=== PATIENT | male | born 1945 | race Caucasian/White ===

== ENCOUNTER 2020-05-18 19:23 | Inpatient (IN) ==
[2020-05-18] MEDS: *HR* OxyCODONE/APAP 5/325 TABLET PO PRN (22:20)
[2020-05-19] MEDS ORDERED: D5% in Water 1,000 ML IVC PRN (01:22)
[2020-05-19] MEDS ORDERED: *HR* Dextrose 50 % in Water (Vial) 50 ML VIAL IVP PRN (01:22)
[2020-05-19] MEDS ORDERED: Dextrose Gel 15 GM/37.5 ML TUBE PO PRN ×2 (01:22)
[2020-05-19] MEDS: *HR* OxyCODONE/APAP 5/325 TABLET PO PRN ×4 (02:40→21:17)
[2020-05-19] MEDS: Ipratropium/Albuterol Neb 3 ML IH SCH ×3 (06:29→17:36)
[2020-05-19] MEDS: allopurinoL 300 MG TABLET PO SCH (08:43)
[2020-05-19] MEDS: Finasteride 5 MG TABLET PO SCH (08:43)
[2020-05-19] MEDS: Latanoprost 2.5 ML BOTTLE BOTH EYES SCH ×2 (08:43→08:51)
[2020-05-19] MEDS: Multivit/Ca/Min/Fe/FA 1 TAB TABLET PO SCH (08:43)
[2020-05-19] MEDS: Cyanocobalamin (B-12) 1,000 MCG TABLET PO SCH (08:43)
[2020-05-19] MEDS: Aspirin Enteric Coated 81 MG Tablet PO SCH (08:43)
[2020-05-19 08:54] LABS: Basophils # 0.1 K/mcL (0.0-0.2); Basophils % 0.8 %; Eosinophils # 0.8 K/mcL (0.0-0.6); Eosinophils % 9.9 %; Hematocrit 30.9 % (37.5-50.1); Immature Granulocytes % 0.2 % (0-4); Lymphocytes # 1.6 K/mcL (0.6-4.6); Lymphocytes % 19.8 %; Mean Corpuscular HGB Conc 32.4 g/dL (31.6-35.5); Mean Corpuscular Hemoglobin 28.6 pg (28.0-33.3); Mean Corpuscular Volume 88.3 fL (83.0-100.0); Mean Platelet Volume 11.1 fL (9.4-12.4); Monocytes # 0.6 K/mcL (0.0-1.3); Monocytes % 7.3 %; Neutrophils # 5.1 K/mcL (1.6-8.9); Platelet Count 397 K/mcL (140-400); Red Cell Distribution Width 14.3 % (11.5-14.5); White Blood Count 8.3 K/mcL (4.3-11.1)
[2020-05-19] MEDS ORDERED: TADALAFIL 6 MG PO SCH (09:00)
[2020-05-19 09:18] LABS: BUN/Creatinine Ratio 19 (6-26); Blood Urea Nitrogen 22 mg/dL (8-23); Calcium 8.9 mg/dL (8.6-10.3); Carbon Dioxide 28 mEq/L (23-29); Chloride 99 mEq/L (98-107); Glucose 117 mg/dL (70-105); Osmolality,Calculated 282 (280-300); Potassium 4.6 mEq/L (3.5-5.1); Sodium 134 mEq/L (136-145); eGFR For African Americans > 60 (> 60); eGFR For Non-African Americans > 60 (> 60)
[2020-05-19] MEDS: Budesonide Neb 0.5 MG/2 ML IH SCH ×2 (10:41→21:12)
[2020-05-19] MEDS: Insulin LISPRO 300 UNITS/3 ML VIAL SUBQ SCH (16:56)
[2020-05-19] MEDS: Sennosides/Docusate Sodium TABLET PO SCH (21:17)
[2020-05-20] MEDS: Ipratropium/Albuterol Neb 3 ML IH SCH ×3 (00:23→18:01)
[2020-05-20] MEDS: *HR* OxyCODONE/APAP 5/325 TABLET PO PRN ×3 (05:27→22:19)
[2020-05-20] MEDS ORDERED: CREON PO PRN (07:52)
[2020-05-20] MEDS ORDERED: [UNRECOGNIZED DRUG - OTHER] PO SCH (08:00)
[2020-05-20] MEDS: Multivit/Ca/Min/Fe/FA 1 TAB TABLET PO SCH (08:22)
[2020-05-20] MEDS: Insulin LISPRO 300 UNITS/3 ML VIAL SUBQ SCH ×3 (08:22→16:21)
[2020-05-20] MEDS: Aspirin Enteric Coated 81 MG Tablet PO SCH (08:22)
[2020-05-20] MEDS: Cyanocobalamin (B-12) 1,000 MCG TABLET PO SCH (08:23)
[2020-05-20] MEDS: allopurinoL 300 MG TABLET PO SCH (08:23)
[2020-05-20] MEDS: Finasteride 5 MG TABLET PO SCH (08:23)
[2020-05-20] MEDS: Latanoprost 2.5 ML BOTTLE BOTH EYES SCH (08:23)
[2020-05-20] MEDS: Sennosides/Docusate Sodium TABLET PO SCH ×2 (08:26→21:08)
[2020-05-20] MEDS: Budesonide Neb 0.5 MG/2 ML IH SCH ×2 (09:33→22:34)
[2020-05-21] MEDS: Ipratropium/Albuterol Neb 3 ML IH SCH ×3 (02:48→17:44)
[2020-05-21] MEDS: *HR* OxyCODONE/APAP 5/325 TABLET PO PRN ×3 (03:53→17:08)
[2020-05-21] MEDS: Insulin LISPRO 300 UNITS/3 ML VIAL SUBQ SCH ×3 (09:04→16:26)
[2020-05-21] MEDS: Sennosides/Docusate Sodium TABLET PO SCH ×2 (09:10→19:42)
[2020-05-21] MEDS: Multivit/Ca/Min/Fe/FA 1 TAB TABLET PO SCH (09:10)
[2020-05-21] MEDS: Finasteride 5 MG TABLET PO SCH (09:10)
[2020-05-21] MEDS: Latanoprost 2.5 ML BOTTLE BOTH EYES SCH (09:10)
[2020-05-21] MEDS: Aspirin Enteric Coated 81 MG Tablet PO SCH (09:10)
[2020-05-21] MEDS: allopurinoL 300 MG TABLET PO SCH (09:10)
[2020-05-21] MEDS: Cyanocobalamin (B-12) 1,000 MCG TABLET PO SCH (09:10)
[2020-05-21] MEDS: Budesonide Neb 0.5 MG/2 ML IH SCH ×2 (10:21→21:53)
[2020-05-22] MEDS: Ipratropium/Albuterol Neb 3 ML IH SCH ×3 (01:58→17:13)
[2020-05-22] MEDS: Insulin LISPRO 300 UNITS/3 ML VIAL SUBQ SCH ×3 (09:18→16:21)
[2020-05-22] MEDS: Multivit/Ca/Min/Fe/FA 1 TAB TABLET PO SCH (09:23)
[2020-05-22] MEDS: Finasteride 5 MG TABLET PO SCH (09:23)
[2020-05-22] MEDS: Sennosides/Docusate Sodium TABLET PO SCH ×2 (09:23→20:32)
[2020-05-22] MEDS: Aspirin Enteric Coated 81 MG Tablet PO SCH (09:23)
[2020-05-22] MEDS: Cyanocobalamin (B-12) 1,000 MCG TABLET PO SCH (09:23)
[2020-05-22] MEDS: allopurinoL 300 MG TABLET PO SCH (09:23)
[2020-05-22] MEDS: Latanoprost 2.5 ML BOTTLE BOTH EYES SCH (09:26)
[2020-05-22] MEDS: Budesonide Neb 0.5 MG/2 ML IH SCH ×2 (09:33→21:47)
[2020-05-22] MEDS: *HR* OxyCODONE/APAP 5/325 TABLET PO PRN ×2 (10:13→19:34)
[2020-05-23] MEDS: Ipratropium/Albuterol Neb 3 ML IH SCH ×2 (01:58→09:10)
[2020-05-23] MEDS: Budesonide Neb 0.5 MG/2 ML IH SCH (09:10)
[2020-05-23] MEDS: allopurinoL 300 MG TABLET PO SCH (09:19)
[2020-05-23] MEDS: Multivit/Ca/Min/Fe/FA 1 TAB TABLET PO SCH (09:19)
[2020-05-23] MEDS: Aspirin Enteric Coated 81 MG Tablet PO SCH (09:20)
[2020-05-23] MEDS: Finasteride 5 MG TABLET PO SCH (09:20)
[2020-05-23] MEDS: Cyanocobalamin (B-12) 1,000 MCG TABLET PO SCH (09:20)
[2020-05-23] MEDS: Sennosides/Docusate Sodium TABLET PO SCH ×2 (09:20→21:14)
[2020-05-23] MEDS: Insulin LISPRO 300 UNITS/3 ML VIAL SUBQ SCH (09:21)
[2020-05-23] MEDS: Latanoprost 2.5 ML BOTTLE BOTH EYES SCH (09:25)
[2020-05-23] MEDS: *HR* OxyCODONE/APAP 5/325 TABLET PO PRN ×2 (09:34→21:16)
[2020-05-23] MEDS: *HR* Enoxaparin 40 MG/0.4 ML SYRINGE SQ SCH (11:09)
[2020-05-23] MEDS ORDERED: Ipratropium/Albuterol Neb 3 ML IH PRN (13:31)
[2020-05-23] MEDS: Budesonide/Formoterol 160/4.5 1 PUFF INH IH SCH (23:13)
[2020-05-24] MEDS: *HR* Enoxaparin 40 MG/0.4 ML SYRINGE SQ SCH (05:50)
[2020-05-24] MEDS: Latanoprost 2.5 ML BOTTLE BOTH EYES SCH (09:20)
[2020-05-24] MEDS: Cyanocobalamin (B-12) 1,000 MCG TABLET PO SCH (09:20)
[2020-05-24] MEDS: allopurinoL 300 MG TABLET PO SCH (09:20)
[2020-05-24] MEDS: Sennosides/Docusate Sodium TABLET PO SCH ×2 (09:20→20:44)
[2020-05-24] MEDS: Multivit/Ca/Min/Fe/FA 1 TAB TABLET PO SCH (09:20)
[2020-05-24] MEDS: Finasteride 5 MG TABLET PO SCH (09:20)
[2020-05-24] MEDS: Aspirin Enteric Coated 81 MG Tablet PO SCH (09:21)
[2020-05-24] MEDS: *HR* OxyCODONE/APAP 5/325 TABLET PO PRN ×2 (09:29→22:42)
[2020-05-24] MEDS: Budesonide/Formoterol 160/4.5 1 PUFF INH IH SCH ×2 (10:49→20:48)
[2020-05-25] MEDS: *HR* Enoxaparin 40 MG/0.4 ML SYRINGE SQ SCH (05:53)
[2020-05-25 06:51] LABS: Hematocrit 28.4 % (37.5-50.1); Hemoglobin 9.2 g/dL (12.9-16.9); Mean Corpuscular HGB Conc 32.4 g/dL (31.6-35.5); Mean Corpuscular Volume 86.6 fL (83.0-100.0); Mean Platelet Volume 10.4 fL (9.4-12.4); Platelet Count 418 K/mcL (140-400); Red Blood Count 3.28 M/mcL (4.19-5.50); Red Cell Distribution Width 13.8 % (11.5-14.5); White Blood Count 7.2 K/mcL (4.3-11.1)
[2020-05-25 07:11] LABS: Alanine Aminotransferase 20 Units/L (7-52); Albumin 2.9 g/dL (3.5-5.7); Albumin/Globulin Ratio 1.2 (1.1-2.2); Alkaline Phosphatase 143 Units/L (34-104); Aspartate Amino Transferase 22 Units/L (13-39); BUN/Creatinine Ratio 23 (6-26); Bilirubin,Total 0.3 mg/dL (0.3-1.0); Blood Urea Nitrogen 23 mg/dL (8-23); Calcium 8.9 mg/dL (8.6-10.3); Carbon Dioxide 29 mEq/L (23-29); Chloride 98 mEq/L (98-107); Globulin 2.5 g/dL (2.4-3.5); Glucose 114 mg/dL (70-105); Osmolality,Calculated 287 (280-300); Sodium 136 mEq/L (136-145); Total Protein 5.4 g/dL (6.4-8.9); eGFR For African Americans > 60 (> 60); eGFR For Non-African Americans > 60 (> 60)
[2020-05-25] MEDS: Aspirin Enteric Coated 81 MG Tablet PO SCH (09:02)
[2020-05-25] MEDS: Sennosides/Docusate Sodium TABLET PO SCH ×2 (09:02→19:50)
[2020-05-25] MEDS: Latanoprost 2.5 ML BOTTLE BOTH EYES SCH (09:03)
[2020-05-25] MEDS: Finasteride 5 MG TABLET PO SCH (09:03)
[2020-05-25] MEDS: Cyanocobalamin (B-12) 1,000 MCG TABLET PO SCH (09:03)
[2020-05-25] MEDS: allopurinoL 300 MG TABLET PO SCH (09:03)
[2020-05-25] MEDS: Multivit/Ca/Min/Fe/FA 1 TAB TABLET PO SCH (09:03)
[2020-05-25] MEDS: *HR* OxyCODONE/APAP 5/325 TABLET PO PRN ×2 (09:04→16:05)
[2020-05-25] MEDS: Budesonide/Formoterol 160/4.5 1 PUFF INH IH SCH ×2 (10:07→22:15)
[2020-05-26] MEDS: *HR* Enoxaparin 40 MG/0.4 ML SYRINGE SQ SCH (06:34)
[2020-05-26 07:12] VITALS: BP 115/75
[2020-05-26] MEDS: Budesonide/Formoterol 160/4.5 1 PUFF INH IH SCH (08:41)
[2020-05-26] MEDS: *HR* OxyCODONE/APAP 5/325 TABLET PO PRN (09:04)
[2020-05-26] MEDS: Finasteride 5 MG TABLET PO SCH (09:05)
[2020-05-26] MEDS: Cyanocobalamin (B-12) 1,000 MCG TABLET PO SCH (09:05)
[2020-05-26] MEDS: Multivit/Ca/Min/Fe/FA 1 TAB TABLET PO SCH (09:05)
[2020-05-26] MEDS: Latanoprost 2.5 ML BOTTLE BOTH EYES SCH (09:06)
[2020-05-26] MEDS: allopurinoL 300 MG TABLET PO SCH (09:06)
[2020-05-26] MEDS: Aspirin Enteric Coated 81 MG Tablet PO SCH (09:06)
[2020-05-26] MEDS: Sennosides/Docusate Sodium TABLET PO SCH (09:06)
== END 2020-05-26 13:50 | disposition home health service (06) | DRG 946 ==
LOC: INPPIK 21:23
PROVIDERS: ADMIT Family Medicine; ATTEND Family Medicine